=== PATIENT | female | born 1980 | race Caucasian/White ===

== ENCOUNTER 2017-11-02 17:50 | Emergency (ER) | payer SELFPAY | END 2017-11-02 19:30 | disposition left against medical advice (07) | LOC: FTE 17:50 | DX: Z53.21 Procedure and treatment not carried out due to patient leaving prior to being seen by health care provider (principal) ==

== ENCOUNTER 2019-03-06 01:38 | Emergency (ER) | payer BC ==
[2019-03-06] MEDS: ONDANSETRON (ODT) 4 MG TAB ODT (04:14)
[2019-03-06] MEDS: IBUPROFEN 600 MG TAB PO (04:14)
[2019-03-06] MEDS: STERILE WATER 1L IRRIG BTL IRR (04:30)
== END 2019-03-06 05:42 | disposition home or self-care (01) ==
LOC: FTE 01:38
DX: S51.812A Laceration without foreign body of left forearm, initial encounter (principal); F17.210 Nicotine dependence, cigarettes, uncomplicated; W26.8XXA Contact with other sharp object(s), not elsewhere classified, initial encounter; Y92.007 Garden or yard of unspecified non-institutional (private) residence as the place of occurrence of the external cause
CPT/HCPCS: 12004; 99283-25